=== PATIENT | male | born 1940 | race Caucasian/White ===

== ENCOUNTER → 2017-01-31 | Outpatient (CLI) | payer MEDICARE ==
[~2017-01-31] MED LIST: ASPIRIN81 M1 PO; FEOSOL300 MG PO; LOPRESSOR50 MG PO; MASON NATURAL2000 IU PO; METFORMIN1000 MG PO; METFORMIN500 MG PO; MEVACOR20 MG PO; MEVACOR40 MG PO; NORCO 325 MG-51 TAB PO; PLAVIX75 MG PO; PRINIVIL10 MG PO; VITAMIN B-12100 MCG PO; VITAMIN D2000 IU PO; ZESTORETIC 12.51 TA1 PO
== END | disposition home or self-care (01) ==
LOC: MEDIPORT 11:00
DX: Z45.2 Encounter for adjustment and management of vascular access device (principal)

== ENCOUNTER → 2017-03-15 | Outpatient (CLI) | payer MEDICARE | END | disposition home or self-care (01) | LOC: MEDIPORT 02:48 | DX: Z45.2 Encounter for adjustment and management of vascular access device (principal) ==

== ENCOUNTER → 2017-04-26 | Outpatient (CLI) | payer MEDICARE | LOC: MEDIPORT 03:15 | DX: Z45.2 Encounter for adjustment and management of vascular access device (principal) ==

== ENCOUNTER → 2017-06-07 | Outpatient (CLI) | payer MEDICARE | LOC: MEDIPORT 02:54 | DX: Z45.2 Encounter for adjustment and management of vascular access device (principal) ==

== ENCOUNTER → 2017-07-03 | Day surgery (SDC) | payer MEDICARE ==
[~2017-07-03] VITALS: Ht 180.3 cm; Wt 140.6 kg
--- NOTE | ~2017-07-03 | O ---
[place], [place] OPERATIVE NOTE NAME: LOUIE REDDY R UNIT #: [id number] ROOM: DOCTOR: GAURAV DIAZ MD BIRTHDATE: [birth year] DOS: HISTORY OF PRESENT ILLNESS: The patient is 77-year-old with history of rectosigmoid colon carcinoma status post resection, status post chemotherapy, PET scan positive with concerns. PAST MEDICAL HISTORY: Colon CA, hypercholesterolemia, diabetes mellitus and hypertension, coronary artery disease. SOCIAL HISTORY: Nonsmoker, nonalcohol consumer. FAMILY HISTORY: Noncontributory. PAST SURGICAL HISTORY: Two stents in the coronary arteries. PROCEDURE: Today's procedure part of investigation is colonoscopy plus biopsy of anastomotic site. PREMEDICATION: Versed and Diprivan. SCOPE: Olympus forward-viewing colonoscope 10L video. REPORT: After putting the patient in the left lateral position and after application of lubricant to the scope, the scope was introduced; thereafter, under direct visualization, I advanced through the length of colon without difficulty. Base of the cecum explored, appendiceal orifice identified, and ileocecal valve was identified. Scope was withdrawn back to the anastomotic site, approximately 25 cm area of hypertrophied ulcerative folds were multiple times biopsied and photographed. Air was suctioned out. The patient was extubated, tolerated procedure well. IMPRESSION: History of colonic carcinoma, PET scan positive study, hypertrophic fold ulceration at the anastomotic site approximately at 25 cm, status post multiple biopsies, diverticulosis. PLAN AND DISCUSSION: Awaiting biopsy results and clinical reevaluation. We will make sure that Oncology would receive biopsy results as well once the data is available and the patient is assigned to have 2 weeks follow up in GI clinic for reevaluation of the biopsies and discussion. [place], [place] OPERATIVE NOTE NAME: LOUIE REDDY R UNIT #: [id number] ROOM: DOCTOR: GAURAV DIAZ MD BIRTHDATE: [birth year] GAURAV DIAZ MD CM:OPRECORD:OPERATIVE NOTE [id number] GAURAV DIAZ MD 07/03/17 1053 interface
[2017-07-03 08:53] VITALS: BP 176/74
[2017-07-03 10:24] VITALS: BP 158/63
[2017-07-03 10:39] VITALS: BP 133/73
[2017-07-03 10:54] VITALS: BP 149/70
== END | disposition home or self-care (01) ==
LOC: SDC 06-27 08:00
DX: Z08 Encounter for follow-up examination after completed treatment for malignant neoplasm (principal); K63.3 Ulcer of intestine; E78.00 Pure hypercholesterolemia, unspecified; I25.10 Atherosclerotic heart disease of native coronary artery without angina pectoris; E11.9 Type 2 diabetes mellitus without complications; D64.9 Anemia, unspecified; I10 Essential (primary) hypertension; E66.01 Morbid (severe) obesity due to excess calories; K29.50 Unspecified chronic gastritis without bleeding; Z85.038 Personal history of other malignant neoplasm of large intestine; Z95.5 Presence of coronary angioplasty implant and graft; Z80.9 Family history of malignant neoplasm, unspecified; Z68.41 Body mass index [BMI] 40.0-44.9, adult; Z79.84 Long term (current) use of oral hypoglycemic drugs; Z79.899 Other long term (current) drug therapy

== ENCOUNTER → 2017-08-09 | Outpatient (CLI) | payer MEDICARE ==
[2017-08-09 10:36] LABS: BASO # 0.1 10*3/uL (0.0-0.1); BASO % 0.7 % (0.0-1.0); EOS # 0.9 10*3/uL (0.0-0.4); EOS % 11.4 % (1.0-4.0); HEMATOCRIT 37.1 % (42.0-52.0); HEMOGLOBIN 11.8 g/dl (14.0-18.0); LYMPH % 12.6 % (27.0-41.0); MEAN CELL VOLUME 84.9 fl (80.0-94.0); MEAN CORPUSCULAR HGB CONC 31.8 g/dl (33.0-37.0); MEAN PLATELET VOLUME 11.1 fl (9.6-12.3); MONO # 0.7 10*3/uL (0.1-1.0); MONO % 8.2 % (3.0-9.0); NEUT # 5.5 10*3/uL (2.3-7.9); NEUT % 66.6 % (47.0-73.0); PLATELET COUNT AUTOMATED 161 10*3/uL (130-400); RED BLOOD COUNT 4.37 10*6/uL (4.50-5.90); WHITE BLOOD COUNT 8.3 10*3/uL (4.8-10.8)
--- NOTE | 2017-08-09 10:45 | NUR ---
PT HERE FOR MEDIPORT FLUSH ORDERED. SITE ACCESSED WITH NON-CORING NEEDLE AFTER SITE PREPPED. DOUBLE PORT FLUSHED WITH HEPARIN AND SALINE. PROMPT BLOOD RETURN NOTED. PATIENT TOLERATED WELL. DRESSING APPLIED. NO BLEEDING NOTED. CHRIS ALEJANDRE RN
[2017-08-09 11:05] LABS: BUN 19 mg/dl (7-24); CHLORIDE 103 mmol/L (98-107); CHOLESTEROL 120 mg/dL (<200); CREATININE 1.31 mg/dL (0.70-1.30); HDL CHOLESTEROL 50 mg/dl (40-60); LDL CHOLESTEROL 53 mg/dL (9-159); POTASSIUM 3.8 mmol/L (3.5-5.1); SGOT/AST 13 IU/L (3-35); SGPT/ALT 14 U/L (12-78); SODIUM 138 mmol/L (136-145); TRIGLYCERIDES 83 mg/dl (<150); VLDL CHOLESTEROL 17 mg/dL (6-40)
== END | disposition home or self-care (01) ==
LOC: MEDIPORT 07-19 11:00 → LAB 01:22 → MEDIPORT 11:00
PROVIDERS: Internal Medicine Cardiovascular Disease
DX: Z45.2 Encounter for adjustment and management of vascular access device (principal); I10 Essential (primary) hypertension

== ENCOUNTER → 2017-12-24 | Outpatient (CLI) | payer MEDICARE ==
[2017-12-24 10:09] LABS: BASO # 0.1 10*3/uL (0.0-0.1); BASO % 0.8 % (0.0-1.0); EOS # 0.6 10*3/uL (0.0-0.4); HEMATOCRIT 38.2 % (42.0-52.0); HEMOGLOBIN 11.9 g/dl (14.0-18.0); LYMPH # 0.9 10*3/uL (1.3-4.4); LYMPH % 11.8 % (27.0-41.0); MEAN CELL VOLUME 80.1 fl (80.0-94.0); MEAN CORPUSCULAR HGB 24.9 pg (27.0-31.0); MEAN CORPUSCULAR HGB CONC 31.2 g/dl (33.0-37.0); MEAN PLATELET VOLUME 11.1 fl (9.6-12.3); MONO # 0.7 10*3/uL (0.1-1.0); MONO % 9.6 % (3.0-9.0); NEUT # 5.4 10*3/uL (2.3-7.9); NEUT % 69.5 % (47.0-73.0); PLATELET COUNT AUTOMATED 160 10*3/uL (130-400); RED BLOOD COUNT 4.77 10*6/uL (4.50-5.90); RED CELL DISTRI WIDTH 15.4 % (0-14.5); WHITE BLOOD COUNT 7.7 10*3/uL (4.8-10.8)
[2017-12-24 10:33] LABS: ACT PARTIAL THROMBO TIME 24.5 SECONDS (20.8-31.5); ALBUMIN 3.6 gm/dl (3.1-4.5); CREATININE 1.42 mg/dL (0.70-1.30); POTASSIUM 3.7 mmol/L (3.5-5.1); TOTAL PROTEIN 6.9 gm/dL (6.4-8.2)
== END | disposition home or self-care (01) ==
LOC: LAB 09:20
PROVIDERS: Urology
DX: Z01.818 Encounter for other preprocedural examination (principal); D40.0 Neoplasm of uncertain behavior of prostate; J44.9 Chronic obstructive pulmonary disease, unspecified; I10 Essential (primary) hypertension; E11.9 Type 2 diabetes mellitus without complications

== ENCOUNTER 2018-04-25 09:17 | Emergency (ER) | payer MEDICARE ==
[~2018-04-25] VITALS: Ht 180.3 cm; Wt 142.9 kg
[2018-04-25] MEDS ORDERED: NAPROSYN500 MG PO (09:23)
== END 2018-04-25 10:39 | disposition home or self-care (01) ==
LOC: ED 09:17
DX: S90.32XA Contusion of left foot, initial encounter (principal); Z79.899 Other long term (current) drug therapy; Z79.82 Long term (current) use of aspirin; W19.XXXA Unspecified fall, initial encounter; Y93.89 Activity, other specified; Y92.091 Bathroom in other non-institutional residence as the place of occurrence of the external cause; Y99.9 Unspecified external cause status

== ENCOUNTER → 2018-08-01 | Outpatient (CLI) | payer MEDICARE ==
[~2018-08-01] MED LIST changes: +NAPROSYN500 MG PO
== END | disposition home or self-care (01) ==
LOC: MEDIPORT 10:25
DX: Z45.2 Encounter for adjustment and management of vascular access device (principal)

== ENCOUNTER → 2018-08-29 | Outpatient (CLI) | payer MEDICARE ==
[2018-08-29 11:18] LABS: CHOLESTEROL 131 mg/dL (<200); HDL CHOLESTEROL 50 mg/dl (40-60); LDL CHOLESTEROL 59 mg/dL (9-159); TRIGLYCERIDES 111 mg/dl (<150); VLDL CHOLESTEROL 22 mg/dL (6-40)
[2018-08-29 11:20] LABS: ALBUMIN 3.5 gm/dl (3.1-4.5); ALKALINE PHOSPHATASE 60 U/L (45-117); BUN 15 mg/dl (7-24); CEA 0.5 ng/mL; CHLORIDE 102 mmol/L (98-107); CREATININE 1.33 mg/dL (0.70-1.30); POTASSIUM 3.8 mmol/L (3.5-5.1); SGOT/AST 15 IU/L (3-35); SGPT/ALT 13 U/L (12-78); SODIUM 138 mmol/L (136-145); TOTAL PROTEIN 6.9 gm/dL (6.4-8.2)
[2018-08-29 11:28] LABS: BASO # 0.1 10*3/uL (0.0-0.1); BASO % 0.6 % (0.0-1.0); EOS # 0.6 10*3/uL (0.0-0.4); HEMATOCRIT 39.8 % (42.0-52.0); HEMOGLOBIN 12.7 g/dl (14.0-18.0); LYMPH # 1.1 10*3/uL (1.3-4.4); LYMPH % 11.4 % (27.0-41.0); MEAN CELL VOLUME 88.2 fl (80.0-94.0); MEAN CORPUSCULAR HGB 28.2 pg (27.0-31.0); MEAN CORPUSCULAR HGB CONC 31.9 g/dl (33.0-37.0); MEAN PLATELET VOLUME 11.4 fl (9.6-12.3); MONO # 0.7 10*3/uL (0.1-1.0); MONO % 7.4 % (3.0-9.0); NEUT # 7.2 10*3/uL (2.3-7.9); NEUT % 74.1 % (47.0-73.0); PLATELET COUNT AUTOMATED 171 10*3/uL (130-400); RED BLOOD COUNT 4.51 10*6/uL (4.50-5.90); RED CELL DISTRI WIDTH 14.6 % (0-14.5); WHITE BLOOD COUNT 9.7 10*3/uL (4.8-10.8)
== END | disposition home or self-care (01) ==
LOC: LAB 08:10 → MEDIPORT 08:10
PROVIDERS: Internal Medicine Cardiovascular Disease; Internal Medicine Hematology & Oncology
DX: Z45.2 Encounter for adjustment and management of vascular access device (principal); I25.10 Atherosclerotic heart disease of native coronary artery without angina pectoris; C21.8 Malignant neoplasm of overlapping sites of rectum, anus and anal canal; I10 Essential (primary) hypertension; D64.9 Anemia, unspecified; Z95.2 Presence of prosthetic heart valve

== ENCOUNTER → 2018-10-31 | Outpatient (CLI) | payer MEDICARE ==
--- NOTE | 2018-10-31 10:27 | NUR ---
CLIENT AMBULATORY TO TREATMENT AREA FOR DOUBLE PORT FLUSH. EACH PORT WAS PREPPED X 2 AND ACCESSED USING ASEPTIC TECHNIQUE. BRISK BLOOD RETURN WAS NOTED FROM EACH PORT. EACH PORT WAS FLUSHED WITH SALINE FOLLOWED BY HEPARIN. NEEDLES WERE REMOVED AND BANDAIDS APPLIED TO SITES. SCANT BLEEDING SOON STOPPED WITH PRESSURE. CLIENT THEN AMBULATED FROM TREATMENT AREA IN STABLE CONDITION
== END ==
DX: Z45.2 Encounter for adjustment and management of vascular access device (principal)

== ENCOUNTER → 2018-12-05 | Outpatient (CLI) | payer MEDICARE ==
[2018-12-05 11:06] LABS: BASO # 0.1 10*3/uL (0.0-0.1); BASO % 0.6 % (0.0-1.0); EOS # 0.8 10*3/uL (0.0-0.4); EOS % 8.8 % (1.0-4.0); HEMATOCRIT 44.9 % (42.0-52.0); HEMOGLOBIN 14.1 g/dl (14.0-18.0); LYMPH % 11.3 % (27.0-41.0); MEAN CELL VOLUME 87.7 fl (80.0-94.0); MEAN CORPUSCULAR HGB 27.5 pg (27.0-31.0); MEAN CORPUSCULAR HGB CONC 31.4 g/dl (33.0-37.0); MEAN PLATELET VOLUME 10.5 fl (9.6-12.3); MONO # 0.7 10*3/uL (0.1-1.0); MONO % 7.9 % (3.0-9.0); NEUT # 6.1 10*3/uL (2.3-7.9); PLATELET COUNT AUTOMATED 182 10*3/uL (130-400); RED BLOOD COUNT 5.12 10*6/uL (4.50-5.90); RED CELL DISTRI WIDTH 13.4 % (0-14.5); WHITE BLOOD COUNT 8.5 10*3/uL (4.8-10.8)
--- NOTE | 2018-12-05 11:27 | NUR ---
CLIENT AMBULATORY TO TREATMENT AREA FOR ROUTINE DOUBLE PORT FLUSH. EACH PORT WAS PREPPED X 3 AND ACCESSED USING ASEPTIC TECHNIQUE. BRISK BLOOD RETURN WAS NOTED FROM EACH PORT. EACH PORT WAS FLUSHED WITH SALINE FOLLOWED BY HEPARIN. NEEDLES WERE WITHDRAWN AND BANDAID WAS APPLIED OVER SITES. NO BLEEDING WAS SEEN. CLIENT THEN AMBULATED FROM TREATMENT AREA IN STABLE CONDITION
[2018-12-05 11:35] LABS: ALBUMIN 3.4 gm/dl (3.1-4.5); CREATININE 1.45 mg/dL (0.70-1.30); TOTAL PROTEIN 7.3 gm/dL (6.4-8.2)
[2018-12-05 11:36] LABS: CEA 0.6 ng/mL
== END | disposition home or self-care (01) ==
LOC: MEDIPORT 09:58 → LAB 09:58 → MEDIPORT 11:00
PROVIDERS: Internal Medicine Hematology & Oncology
DX: I10 Essential (primary) hypertension (principal); C21.8 Malignant neoplasm of overlapping sites of rectum, anus and anal canal; D64.9 Anemia, unspecified

== ENCOUNTER → 2019-01-02 | Outpatient (CLI) | payer MEDICARE ==
[2019-01-02 11:20] LABS: BUN 22 mg/dl (7-24); CHLORIDE 104 mmol/L (98-107); CREATININE 1.23 mg/dL (0.70-1.30); POTASSIUM 4.1 mmol/L (3.5-5.1); SODIUM 140 mmol/L (136-145)
--- NOTE | 2019-01-02 12:03 | NUR ---
CLIENT AMBULATORY TO TREATMENT AREA FOR ROUTINE FLUSH OF DOUBLE PORT. PORT WAS PREPPED X 2 AND ACCESSED USING ASEPTIC TECHNIQUE. BRISK BLOOD RETURN WAS NOTED. HOWEVER, UPON SALINE FLUSH, CLIENT C/O "PRESSURE" LIKE PAIN AND EDEMA WAS NOTED BETWEEN PORT AND CLIENT'S NECK. NO FURTHER BLOOD WAS ABLE TO BE ASPIRATED FROM PORT. AFTER A SHORT TIME, EDEMA SUBSIDED. NEEDLE WAS WITHDRAWN AND A BANDAID WAS APPLIED TO SITE. NO BLEEDING WAS SEEN. CLIENT STATES HE HAS AN APPOINTMENT WITH ORDERING PROVIDER TODAY AND WILL NOTIFY HIM OF WHAT HAPPENED TODAY. CLIENT THEN LEFT TREATMENT AREA IN STABLE CONDITION AND HAD NO C/O.
== END | disposition home or self-care (01) ==
LOC: MEDIPORT 01:34 → LAB 01:34 → MEDIPORT 11:00
PROVIDERS: Internal Medicine Cardiovascular Disease
DX: Z12.5 Encounter for screening for malignant neoplasm of prostate (principal); Z45.2 Encounter for adjustment and management of vascular access device; I10 Essential (primary) hypertension

== ENCOUNTER → 2019-08-06 | Outpatient (CLI) | payer MEDICARE ==
[2019-08-06 11:43] LABS: BASO # 0.1 10*3/uL (0.0-0.1); BASO % 0.6 % (0.0-1.0); EOS # 0.7 10*3/uL (0.0-0.4); EOS % 8.1 % (1.0-4.0); HEMOGLOBIN 12.7 g/dl (14.0-18.0); LYMPH # 1.1 10*3/uL (1.3-4.4); LYMPH % 13.4 % (27.0-41.0); MEAN CELL VOLUME 88.7 fl (80.0-94.0); MEAN CORPUSCULAR HGB 28.2 pg (27.0-31.0); MEAN CORPUSCULAR HGB CONC 31.8 g/dl (33.0-37.0); MEAN PLATELET VOLUME 10.7 fl (9.6-12.3); MONO # 0.7 10*3/uL (0.1-1.0); MONO % 8.4 % (3.0-9.0); NEUT # 5.8 10*3/uL (2.3-7.9); NEUT % 69.1 % (47.0-73.0); PLATELET COUNT AUTOMATED 207 10*3/uL (130-400); RED BLOOD COUNT 4.51 10*6/uL (4.50-5.90); RED CELL DISTRI WIDTH 14.2 % (0-14.5); WHITE BLOOD COUNT 8.4 10*3/uL (4.8-10.8)
[2019-08-06 11:57] LABS: BILIRUBIN NEGATIVE (NEGATIVE); BLOOD NEGATIVE (NEGATIVE); CLARITY CLEAR (CLEAR); COLOR YELLOW (YELLOW); GLUCOSE NEGATIVE (NEGATIVE); KETONE NEGATIVE (NEGATIVE); LEUKO ESTERASE NEGATIVE (NEGATIVE); NITRITE NEGATIVE (NEGATIVE); SPECIFIC GRAVITY 1.025 (1.005-1.030); UROBILINOGEN 0.2 E.U./dl (0.2-1.0)
[2019-08-06 12:02] LABS: ALBUMIN 3.4 gm/dl (3.1-4.5); BUN 16 mg/dl (7-24); CHLORIDE 105 mmol/L (98-107); CREATININE 1.15 mg/dL (0.70-1.30); IRON 85 ug/dL (65-175); POTASSIUM 3.9 mmol/L (3.5-5.1); SODIUM 139 mmol/L (136-145); TOTAL IRON BINDING CAPACITY 294 ug/dl (250-450)
[2019-08-06 12:13] LABS: RBC 0-2 rbc/hpf (0-2); WBC 0-2 wbc/hpf (0-5)
[2019-08-06 12:14] LABS: CALCIUM OXALATE CRYSTALS 1+; EPITHELIAL CELLS 0-2
[2019-08-06 12:41] LABS: FERRITIN 64.4 ng/mL (22.0-322.0)
[2019-08-06 12:42] LABS: PTH INTACT 36.1 pg/mL (18.5-88.0)
== END | disposition home or self-care (01) ==
LOC: LAB 11:13
PROVIDERS: Internal Medicine Nephrology
DX: I12.9 Hypertensive chronic kidney disease with stage 1 through stage 4 chronic kidney disease, or unspecified chronic kidney disease (principal); N18.3 Chronic kidney disease, stage 3 (moderate); N25.81 Secondary hyperparathyroidism of renal origin; D63.1 Anemia in chronic kidney disease; Z79.899 Other long term (current) drug therapy

== ENCOUNTER → 2020-01-28 | Outpatient (CLI) | payer MEDICARE | END | disposition home or self-care (01) | LOC: CARD 12:18 | DX: Z01.810 Encounter for preprocedural cardiovascular examination (principal) ==

== ENCOUNTER 2020-04-04 15:04 | Inpatient (IN) | payer MEDICARE ==
[~2020-04-04] VITALS: Ht 180.3 cm; Wt 141.6 kg
[~2020-04-04 15:04] MED LIST changes: +LOPRESSOR50 M1 PO; -LOPRESSOR50 MG PO
[2020-04-04 15:09] VITALS: BP 143/81
[2020-04-04 15:54] LABS: BASO # 0.1 10*3/uL (0.0-0.1); BASO % 0.6 % (0.0-1.0); EOS # 0.2 10*3/uL (0.0-0.4); EOS % 1.9 % (1.0-4.0); HEMATOCRIT 37.7 % (42.0-52.0); LYMPH # 0.7 10*3/uL (1.3-4.4); LYMPH % 7.9 % (27.0-41.0); MEAN CELL VOLUME 89.8 fl (80.0-94.0); MEAN CORPUSCULAR HGB 26.7 pg (27.0-31.0); MEAN CORPUSCULAR HGB CONC 29.7 g/dl (33.0-37.0); MEAN PLATELET VOLUME 10.9 fl (9.6-12.3); MONO # 0.6 10*3/uL (0.1-1.0); NEUT # 6.7 10*3/uL (2.3-7.9); PLATELET COUNT AUTOMATED 203 10*3/uL (130-400); RED CELL DISTRI WIDTH 15.6 % (0-14.5); WHITE BLOOD COUNT 8.2 10*3/uL (4.8-10.8)
[2020-04-04 16:05] LABS: ACT PARTIAL THROMBO TIME 28.2 SECONDS (20.0-32.1); INTERNATIONAL NORM RATIO 1.1 (2.0-3.5)
[2020-04-04 16:12] LABS: ALBUMIN 2.9 gm/dl (3.1-4.5); CREATININE 1.51 mg/dL (0.70-1.30); POTASSIUM 4.1 mmol/L (3.5-5.1)
[2020-04-04 16:13] LABS: CKMB 1.8 ng/ml (0.5-3.6)
[2020-04-04 16:14] LABS: TOTAL PROTEIN 6.3 gm/dL (6.4-8.2); TROPONIN I 0.035 ng/ml (<0.045)
[2020-04-04 17:30] VITALS: BP 152/71
[2020-04-04] MEDS ORDERED: LISINOPRIL10 M1 PO (17:37)
[2020-04-04] MEDS ORDERED: LOVASTATIN20 MG PO (17:38)
[2020-04-04] MEDS ORDERED: TRAZODONE100 MG PO (17:39)
[2020-04-04 19:15] VITALS: BP 140/77
[2020-04-04 20:00] VITALS: BP 137/81
[2020-04-04 20:30] VITALS: BP 137/88
[2020-04-04 21:55] LABS: BILIRUBIN NEGATIVE (NEGATIVE); BLOOD 3+ (NEGATIVE); CLARITY CLEAR (CLEAR); COLOR YELLOW (YELLOW); GLUCOSE NEGATIVE (NEGATIVE); KETONE NEGATIVE (NEGATIVE); LEUKO ESTERASE TRACE (NEGATIVE); NITRITE NEGATIVE (NEGATIVE); SPECIFIC GRAVITY 1.015 (1.005-1.030); UROBILINOGEN 0.2 E.U./dl (0.2-1.0)
[2020-04-04 22:00] LABS: RBC 31-40 rbc/hpf (0-2)
[2020-04-05] VITALS: BP 113/85
[2020-04-05 08:00] VITALS: BP 125/68
[2020-04-05 08:01] LABS: BASO # 0.1 10*3/uL (0.0-0.1); BASO % 0.7 % (0.0-1.0); EOS # 0.4 10*3/uL (0.0-0.4); EOS % 5.2 % (1.0-4.0); HEMATOCRIT 37.7 % (42.0-52.0); LYMPH # 0.7 10*3/uL (1.3-4.4); LYMPH % 9.4 % (27.0-41.0); MEAN CORPUSCULAR HGB CONC 28.9 g/dl (33.0-37.0); MEAN PLATELET VOLUME 11.3 fl (9.6-12.3); MONO # 0.6 10*3/uL (0.1-1.0); MONO % 8.3 % (3.0-9.0); NEUT # 5.4 10*3/uL (2.3-7.9); PLATELET COUNT AUTOMATED 185 10*3/uL (130-400); RED BLOOD COUNT 4.19 10*6/uL (4.50-5.90); RED CELL DISTRI WIDTH 15.6 % (0-14.5); WHITE BLOOD COUNT 7.1 10*3/uL (4.8-10.8)
[2020-04-05 08:18] LABS: CREATININE 1.52 mg/dL (0.70-1.30); POTASSIUM 4.3 mmol/L (3.5-5.1)
[2020-04-05 12:00] VITALS: BP 134/77
[2020-04-05 16:00] VITALS: BP 128/70
[2020-04-05 20:00] VITALS: BP 99/63
[2020-04-06] VITALS: BP 102/50
[2020-04-06 05:25] VITALS: BP 124/40
[2020-04-06 08:00] VITALS: BP 142/85
[2020-04-06 12:00] VITALS: BP 125/62
[2020-04-06 16:00] VITALS: BP 126/73
[2020-04-06 20:00] VITALS: BP 130/65
[2020-04-07] VITALS: BP 104/46
[2020-04-07 07:23] LABS: CREATININE 1.42 mg/dL (0.70-1.30)
[2020-04-07 07:24] LABS: POTASSIUM 2.9 mmol/L (3.5-5.1)
[2020-04-07 07:33] LABS: BASO % 0.6 % (0.0-1.0); EOS # 0.4 10*3/uL (0.0-0.4); EOS % 6.1 % (1.0-4.0); HEMATOCRIT 34.5 % (42.0-52.0); LYMPH # 0.7 10*3/uL (1.3-4.4); LYMPH % 10.5 % (27.0-41.0); MEAN CORPUSCULAR HGB 26.5 pg (27.0-31.0); MEAN CORPUSCULAR HGB CONC 30.1 g/dl (33.0-37.0); MEAN PLATELET VOLUME 11.3 fl (9.6-12.3); MONO # 0.8 10*3/uL (0.1-1.0); MONO % 10.7 % (3.0-9.0); NEUT # 5.1 10*3/uL (2.3-7.9); NEUT % 71.5 % (47.0-73.0); PLATELET COUNT AUTOMATED 174 10*3/uL (130-400); RED BLOOD COUNT 3.92 10*6/uL (4.50-5.90); RED CELL DISTRI WIDTH 15.3 % (0-14.5); WHITE BLOOD COUNT 7.1 10*3/uL (4.8-10.8)
[2020-04-07 08:00] VITALS: BP 130/80; BP 141/71
[2020-04-07 12:00] VITALS: BP 126/63
[2020-04-07 16:00] VITALS: BP 108/50
[2020-04-07 20:00] VITALS: BP 139/78
[2020-04-08] VITALS: BP 124/67
[2020-04-08 06:47] LABS: BASO # 0.1 10*3/uL (0.0-0.1); BASO % 0.8 % (0.0-1.0); EOS # 0.4 10*3/uL (0.0-0.4); EOS % 7.3 % (1.0-4.0); HEMATOCRIT 33.3 % (42.0-52.0); LYMPH # 0.8 10*3/uL (1.3-4.4); LYMPH % 13.4 % (27.0-41.0); MEAN CELL VOLUME 86.7 fl (80.0-94.0); MEAN CORPUSCULAR HGB 26.3 pg (27.0-31.0); MEAN CORPUSCULAR HGB CONC 30.3 g/dl (33.0-37.0); MEAN PLATELET VOLUME 11.2 fl (9.6-12.3); MONO # 0.7 10*3/uL (0.1-1.0); MONO % 10.9 % (3.0-9.0); NEUT # 4.1 10*3/uL (2.3-7.9); NEUT % 67.1 % (47.0-73.0); PLATELET COUNT AUTOMATED 177 10*3/uL (130-400); RED BLOOD COUNT 3.84 10*6/uL (4.50-5.90); RED CELL DISTRI WIDTH 14.9 % (0-14.5); WHITE BLOOD COUNT 6.1 10*3/uL (4.8-10.8)
[2020-04-08 07:02] LABS: BUN 19 mg/dl (7-24); CHLORIDE 94 mmol/L (98-107); CREATININE 1.35 mg/dL (0.70-1.30); POTASSIUM 3.3 mmol/L (3.5-5.1); SODIUM 135 mmol/L (136-145)
[2020-04-08 08:00] VITALS: BP 99/53
[2020-04-08] MEDS ORDERED: XARE20MG PO (10:43)
[2020-04-08] MEDS ORDERED: Zaroxolyn,Diul2.5 MG PO (10:43)
[2020-04-08] MEDS ORDERED: IMDUR SA60 M1 PO (10:43)
[2020-04-08] MEDS ORDERED: KLOR-CON M2020 ME1 PO (10:43)
[2020-04-08] MEDS ORDERED: LASIX40 MG PO (10:43)
[2020-04-08 12:00] VITALS: BP 106/56
== END 2020-04-08 13:59 | disposition other institution (70) | DRG 291 ==
LOC: ED 15:04 → EDHOLD 16:24 → 5E 16:24
PROVIDERS: Nurse Practitioner Family; Student in an Organized Health Care Education/Training Program; ADMIT Family Medicine
PROC: 0HBRXZZ Excision of Toe Nail, External Approach (ICD-10-PCS; principal; 2020-04-05)
DX: I13.0 Hypertensive heart and chronic kidney disease with heart failure and stage 1 through stage 4 chronic kidney disease, or unspecified chronic kidney disease (principal); N17.0 Acute kidney failure with tubular necrosis; I50.33 Acute on chronic diastolic (congestive) heart failure; E44.0 Moderate protein-calorie malnutrition; E87.2 Acidosis; E87.1 Hypo-osmolality and hyponatremia; Z68.41 Body mass index [BMI] 40.0-44.9, adult; I48.91 Unspecified atrial fibrillation; D64.9 Anemia, unspecified; D72.810 Lymphocytopenia; E83.41 Hypermagnesemia; I25.10 Atherosclerotic heart disease of native coronary artery without angina pectoris; E53.8 Deficiency of other specified B group vitamins; E87.6 Hypokalemia; E11.65 Type 2 diabetes mellitus with hyperglycemia; R31.29 Other microscopic hematuria; B35.1 Tinea unguium; E11.22 Type 2 diabetes mellitus with diabetic chronic kidney disease; N18.3 Chronic kidney disease, stage 3 (moderate); Z87.891 Personal history of nicotine dependence; Z80.0 Family history of malignant neoplasm of digestive organs; Z79.899 Other long term (current) drug therapy; Z79.82 Long term (current) use of aspirin; Z79.84 Long term (current) use of oral hypoglycemic drugs; Z85.038 Personal history of other malignant neoplasm of large intestine; Z95.5 Presence of coronary angioplasty implant and graft; Z98.42 Cataract extraction status, left eye; Z98.41 Cataract extraction status, right eye

== ENCOUNTER 2020-04-10 03:08 | Emergency (ER) | payer MEDICARE ==
[~2020-04-10] VITALS: Ht 180.3 cm; Wt 133.8 kg
[~2020-04-10 03:08] MED LIST changes: +IMDUR SA60 M1 PO; +KLOR-CON M2020 ME1 PO; +LASIX40 MG PO; +LISINOPRIL10 M1 PO; +LOVASTATIN20 MG PO; +TRAZODONE100 MG PO; +XARE20MG PO; +Zaroxolyn,Diul2.5 MG PO
[2020-04-10 03:32] LABS: BASO # 0.1 10*3/uL (0.0-0.1); BASO % 0.9 % (0.0-1.0); EOS # 0.5 10*3/uL (0.0-0.4); EOS % 7.6 % (1.0-4.0); HEMATOCRIT 35.5 % (42.0-52.0); LYMPH % 14.8 % (27.0-41.0); MEAN CELL VOLUME 86.8 fl (80.0-94.0); MEAN CORPUSCULAR HGB 26.4 pg (27.0-31.0); MEAN CORPUSCULAR HGB CONC 30.4 g/dl (33.0-37.0); MONO # 0.7 10*3/uL (0.1-1.0); MONO % 10.7 % (3.0-9.0); NEUT # 4.5 10*3/uL (2.3-7.9); NEUT % 65.7 % (47.0-73.0); PLATELET COUNT AUTOMATED 204 10*3/uL (130-400); RED BLOOD COUNT 4.09 10*6/uL (4.50-5.90); RED CELL DISTRI WIDTH 14.8 % (0-14.5); WHITE BLOOD COUNT 6.8 10*3/uL (4.8-10.8)
[2020-04-10 03:42] LABS: ACT PARTIAL THROMBO TIME 37.8 SECONDS (20.0-32.1); INTERNATIONAL NORM RATIO 1.4 (2.0-3.5)
[2020-04-10 04:03] LABS: ALBUMIN 2.7 gm/dl (3.1-4.5); CREATININE 1.76 mg/dL (0.70-1.30); POTASSIUM 3.3 mmol/L (3.5-5.1); TOTAL PROTEIN 6.5 gm/dL (6.4-8.2)
[2020-04-10 04:26] LABS: BILIRUBIN NEGATIVE (NEGATIVE); BLOOD 3+ (NEGATIVE); CLARITY CLEAR (CLEAR); COLOR STRAW (YELLOW); GLUCOSE NEGATIVE (NEGATIVE); KETONE NEGATIVE (NEGATIVE); LEUKO ESTERASE NEGATIVE (NEGATIVE); NITRITE NEGATIVE (NEGATIVE); UROBILINOGEN 0.2 E.U./dl (0.2-1.0)
[2020-04-10 04:35] LABS: RBC TNTC rbc/hpf (0-2)
== END 2020-04-10 06:48 | disposition short-term general hospital (02) ==
LOC: ED 03:08
PROVIDERS: Emergency Medicine
DX: K92.2 Gastrointestinal hemorrhage, unspecified (principal); I50.9 Heart failure, unspecified; E11.9 Type 2 diabetes mellitus without complications; I25.10 Atherosclerotic heart disease of native coronary artery without angina pectoris; I10 Essential (primary) hypertension; E78.00 Pure hypercholesterolemia, unspecified; Z79.899 Other long term (current) drug therapy; Z79.2 Long term (current) use of antibiotics; Z79.82 Long term (current) use of aspirin; Z79.84 Long term (current) use of oral hypoglycemic drugs; Z87.891 Personal history of nicotine dependence

== ENCOUNTER 2020-04-23 22:03 | Emergency (ER) | payer MEDICARE ==
[~2020-04-23] VITALS: Ht 180.3 cm; Wt 114.3 kg
[2020-04-23 23:04] LABS: BASO # 0.1 10*3/uL (0.0-0.1); BASO % 0.9 % (0.0-1.0); EOS # 0.6 10*3/uL (0.0-0.4); EOS % 7.9 % (1.0-4.0); HEMATOCRIT 34.2 % (42.0-52.0); LYMPH # 1.1 10*3/uL (1.3-4.4); LYMPH % 14.9 % (27.0-41.0); MEAN CELL VOLUME 85.5 fl (80.0-94.0); MEAN CORPUSCULAR HGB 26.5 pg (27.0-31.0); MONO # 0.7 10*3/uL (0.1-1.0); MONO % 9.5 % (3.0-9.0); NEUT # 4.9 10*3/uL (2.3-7.9); NEUT % 66.4 % (47.0-73.0); PLATELET COUNT AUTOMATED 255 10*3/uL (130-400); RED CELL DISTRI WIDTH 14.5 % (0-14.5); WHITE BLOOD COUNT 7.4 10*3/uL (4.8-10.8)
[2020-04-23 23:22] LABS: ACT PARTIAL THROMBO TIME 24.8 SECONDS (20.0-32.1); INTERNATIONAL NORM RATIO 0.9 (2.0-3.5)
[2020-04-23 23:29] LABS: ALBUMIN 2.6 gm/dl (3.1-4.5); CREATININE 1.85 mg/dL (0.70-1.30)
[2020-04-23 23:30] LABS: TROPONIN I 0.034 ng/ml (<0.045)
[2020-04-23 23:31] LABS: POTASSIUM 4.8 mmol/L (3.5-5.1)
== END 2020-04-24 01:39 | disposition other institution (70) ==
LOC: ED 22:03
PROVIDERS: Emergency Medicine Emergency Medical Services
DX: K92.2 Gastrointestinal hemorrhage, unspecified (principal); I48.20 Chronic atrial fibrillation, unspecified; E11.9 Type 2 diabetes mellitus without complications; I11.0 Hypertensive heart disease with heart failure; I50.9 Heart failure, unspecified; E78.00 Pure hypercholesterolemia, unspecified; I25.10 Atherosclerotic heart disease of native coronary artery without angina pectoris; Z79.899 Other long term (current) drug therapy; Z79.82 Long term (current) use of aspirin; Z79.84 Long term (current) use of oral hypoglycemic drugs